=== PATIENT | female | born 1935 | race Native Hawaiian/Other Pacific Islander ===

== ENCOUNTER 2016-03-22 09:18 | Outpatient (CLI) | payer OTHER | END 2016-03-22 22:03 | disposition home or self-care (01) | LOC: LABW 09:18 | DX: E10.9 Type 1 diabetes mellitus without complications (principal) | CPT/HCPCS: 36415; 83036 ==

== ENCOUNTER 2016-09-13 08:35 | Outpatient (CLI) | payer OTHER ==
[2016-09-13 09:38] LABS: PLATELET COUNT 309 K/uL (152-353)
[2016-09-13 09:46] LABS: POTASSIUM 3.7 mmol/L (3.6-5.2)
== END 2016-09-13 09:35 | disposition home or self-care (01) ==
LOC: LABW 08:35
PROVIDERS: Internal Medicine
DX: E10.9 Type 1 diabetes mellitus without complications (principal); E78.2 Mixed hyperlipidemia; M79.1 Myalgia
CPT/HCPCS: 36415; 80048; 80061; 80076; 82550; 83036; 84443; 85027